=== PATIENT | female | born 1955 | race Caucasian/White ===

== ENCOUNTER → 2016-06-26 | Outpatient (CLI) | payer OTHER | LOC: BMCIMAGING 14:19 | PROVIDERS: ATTEND Internal Medicine | DX: Z12.31 Encounter for screening mammogram for malignant neoplasm of breast (principal); Z80.3 Family history of malignant neoplasm of breast | CPT/HCPCS: G0202 ==

== ENCOUNTER 2016-08-14 16:29 | Emergency (ER) | payer OTHER ==
[2016-08-14 16:34] VITALS: TEMP 98.2
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
[2016-08-14] MEDS ORDERED: CEPHALEXIN 500MG PREPACK#4 BTL TAKEHOME ONE (18:01)
[2016-08-14 19:47] VITALS: BP 135/74; PULSE 70; RESP 20; O2SAT 98
== END 2016-08-14 19:47 | disposition home or self-care (01) ==
DX: S41.111A Laceration without foreign body of right upper arm, initial encounter (principal); S09.90XA Unspecified injury of head, initial encounter; I10 Essential (primary) hypertension; E10.9 Type 1 diabetes mellitus without complications; S40.811A Abrasion of right upper arm, initial encounter; W05.1XXA Fall from non-moving nonmotorized scooter, initial encounter

== ENCOUNTER 2016-08-17 09:58 | Emergency (ER) | payer OTHER ==
[2016-08-17 10:01] VITALS: TEMP 98.4
[2016-08-17] MEDS ORDERED: LET GEL TOPICAL 1 EA SYR TP ONE (10:14)
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
[2016-08-17 11:45] VITALS: BP 118/78; PULSE 70; RESP 14; O2SAT 94
== END 2016-08-17 11:44 | disposition home or self-care (01) ==
DX: S09.90XD Unspecified injury of head, subsequent encounter (principal); S51.021D Laceration with foreign body of right elbow, subsequent encounter; V28.0XXD Motorcycle driver injured in noncollision transport accident in nontraffic accident, subsequent encounter

== ENCOUNTER → 2017-08-05 | Outpatient (CLI) | payer OTHER | LOC: BMCIMAGING 13:17 | PROVIDERS: ATTEND Internal Medicine | DX: Z12.31 Encounter for screening mammogram for malignant neoplasm of breast (principal); Z80.3 Family history of malignant neoplasm of breast ==